=== PATIENT | female | born 1970 | race Caucasian/White ===

== ENCOUNTER → 2017-07-26 | Outpatient (CLI) | payer OTHER ==
--- NOTE | 2017-07-26 14:32 | XR ---
Thoracic spine HISTORY: Pain and curvature 3 views of the thoracic spine There is a mild spinal curvature present. Thoracic vertebral bodies show preserved height and alignme nt. There is mild multilevel spondylosis. No paraspinal mass. Disc spaces are maintained. IMPRESSION: Mild scoliosis, thoracic spondylosis. MRI may be of benefit.
--- NOTE | 2017-07-26 14:36 | XR ---
Lumbosacral spine HISTORY: Pain 5 views of the lumbosacral spine submitted. Lumbar vertebral bodies show preserved height, alignment, and bone mineralization. Transitional verte bral body noted at the lumbosacral junction. Rudimentary rib present at L1. Lumbar vertebral bodies s how preserved height and alignment. Schmorl's node present superior endplate L2. There are vascular c alcifications. Sclerosis present in the posterior elements of the lower lumbar spine may be due to so me local facet arthropathy. No spondylolysis. IMPRESSION: No acute abnormality. Additional findings above.
--- NOTE | 2017-07-26 14:37 | XR ---
Cervical spine HISTORY: Pain 5 views of the cervical spine Cervical vertebral bodies show preserved height, alignment, and bone mineralization. Disc spaces are maintained. Prevertebral soft tissues are normal. No significant foraminal encroachment. IMPRESSION: Normal cervical spine.
== END | disposition home or self-care (01) ==
LOC: RADXRMAIN 10:18
PROVIDERS: ATTEND Internal Medicine
DX: M47.814 Spondylosis without myelopathy or radiculopathy, thoracic region (principal); M41.9 Scoliosis, unspecified; R52 Pain, unspecified
CPT/HCPCS: 72050; 72070; 72110

== ENCOUNTER → 2017-07-27 | Outpatient (CLI) | payer OTHER ==
--- NOTE | 2017-07-27 09:42 | US ---
EXAMINATION TYPE: US pelvic complete DATE OF EXAM: 07/27/2017 COMPARISON: CT CLINICAL HISTORY: R10.9 abd/pelvic pain, hx of endometriosis, bloating and diarrhea x 1 month worse i n last week or two. TECHNIQUE: . Transabdominal sonographic images of the pelvis were acquired. Date of LMP: 07/14/17 EXAM MEASUREMENTS: Uterus: 8.0 x 4.1 x 4.7 cm Endometrial Stripe: 0.8 cm Right Ovary: 2.9 x 1.6 x 2.0cm Left Ovary: 3.0 x 2.5 x 1.9cm 1. Uterus: Anteverted 2. Endometrium: wnl 3. Right Ovary: wnl 4. Left Ovary: simple appearing cyst measuring 1.5 x 1.7 x 1.5 cm 5. Bilateral Adnexa: wnl 6. Posterior cul-de-sac: wnl IMPRESSION: Unremarkable pelvic ultrasound with physiologic follicular changes of the ovaries and nor mal thickness of the endometrium.
--- NOTE | 2017-07-27 09:44 | US ---
EXAMINATION TYPE: US abdomen complete DATE OF EXAM: 07/27/2017 COMPARISON: NONE CLINICAL HISTORY: R10.9 abd/pelvic pain. EXAM MEASUREMENTS: Liver Length: 17.0 cm Gallbladder Wall: 0.2 cm CBD: 0.3 cm Spleen: 13.3 cm Right Kidney: 11.3 x 3.8 x 5.3 cm Left Kidney: 11.3 x 5.5 x 5.2 cm Patient had extensive peristalsing bowel midline and in pelvis. Pancreas: wnl Liver: upper limits of normal in size Gallbladder: wnl CBD: wnl Spleen: Upper limits of normal Right Kidney: wnl Left Kidney: Inferior pole obscured by bowel gas Upper IVC: wnl Abd Aorta: some mild atherosclerotic plaque noted The liver is homogenous. The intrahepatic portion of the IVC and proximal abdominal aorta are within normal limits. There is no evidence of cholelithiasis. Common bile duct is unremarkable. The visu alized portions of the pancreas are homogenous. The spleen is unremarkable. Kidneys are symmetric a nd free of hydronephrosis. No renal lesions are seen. IMPRESSION: 1. Both the spleen and liver are upper limits of normal size. 2. No sonographic evidence of cholelithiasis or acute cholecystitis.
== END | disposition home or self-care (01) ==
LOC: RADUSWWP 08:00
PROVIDERS: ATTEND Internal Medicine
DX: R10.9 Unspecified abdominal pain (principal)
CPT/HCPCS: 76700; 76856

== ENCOUNTER 2017-08-09 09:49 | Day surgery (SDC) | payer OTHER ==
[2017-08-07 17:24] VITALS: BMI 20.6
[~2017-08-09 09:49] MED LIST: LACTATED RINGERS 1,000 ML IV SCH; LIDOCAINE 1% 20 ML VIAL (10MG/ML) FOR IV START INTRADERMA PRN
[2017-08-09 10:21] VITALS: TEMP 98.6
[2017-08-09] MEDS ORDERED: PROPOFOL 10 MG/ML 20 ML VIAL IV ONE (11:18)
[2017-08-09] MEDS ORDERED: LIDOCAINE 1% INJ 10MG/ML (20 ML MDV) ONE (11:18)
--- NOTE | 2017-08-09 11:52 | P.PCN ---
Date of Procedure: 08/09/17 Procedure(s) Performed: Procedure: Total colonoscopy. Preoperative diagnosis: Abdominal pain and change in bowel habits. Postoperative diagnosis: Exam within normal limits. Preparation: HalfLytely prep. Sedation: Was provided by anesthesia. Brief clinical history: The patient is a 46-year-old female who is scheduled for this evaluation because of issues with abdominal pain and change in bowel habits that she has experienced over the last 6-7 weeks. She, apparently, started to have low abdominal and pelvic pains involving both sides and then went on to develop diarrhea. Her diarrhea has since subsided. She still have abdominal and back pains. This evaluation is to assess for complicated diverticular disease or inflammatory bowel disease or other pathology. Procedure: With the patient on her left lateral decubitus position and after informed consent and adequate sedation, the perianal area was inspected and it did not show any fissures or fistulas. There were no masses felt on digital rectal examination. The Olympus CFQ 160L video colonoscope was then inserted in the rectum in the usual fashion and advanced to the cecum. The preparation was less than ideal, however, the mucosa appeared healthy and there was no obvious polyps or tumors or any obvious diverticular disease or colitis. I retroflexed the endoscope in the rectum before the endoscope was withdrawn. The patient tolerated the procedure well. Plan: The patient was reassured. This could have been an infectious or self- limited colitis that has since subsided. It is possible that she is having postinfectious irritable bowel. I suggest symptomatic treatment, including dietary manipulation and anti-spasmodics, and make further plans based on her course. I would suggest repeat colonoscopy when she turns 52. She will follow- up with you as planned.
[2017-08-09 12:18] VITALS: BP 132/89; PULSE 78; RESP 18
== END 2017-08-09 12:30 | disposition home or self-care (01) ==
LOC: ORWHC2ENDO 09:49
DX: K58.9 Irritable bowel syndrome, unspecified (principal); I73.00 Raynaud's syndrome without gangrene; Z79.899 Other long term (current) drug therapy
CPT/HCPCS: 81025; 45378; J2001; J2704